=== PATIENT | female | born 1985 | race Caucasian/White ===

== ENCOUNTER 2016-10-28 23:38 | Emergency (ER) | payer OTHER | END 2016-10-29 04:22 | disposition home or self-care (01) | LOC: ER 23:38 | DX: R10.9 Unspecified abdominal pain (principal); R30.0 Dysuria; R11.0 Nausea; F17.210 Nicotine dependence, cigarettes, uncomplicated; Z88.5 Allergy status to narcotic agent | CPT/HCPCS: 36415; 96374; 96375 ==

== ENCOUNTER 2016-12-30 14:46 | Emergency (ER) | payer OTHER | END 2016-12-30 17:44 | disposition home or self-care (01) | LOC: ER 14:46 | DX: K52.9 Noninfective gastroenteritis and colitis, unspecified (principal); N39.0 Urinary tract infection, site not specified; F17.210 Nicotine dependence, cigarettes, uncomplicated; Z88.5 Allergy status to narcotic agent | CPT/HCPCS: 36415; 96361; 96374; 96375 ==